=== PATIENT | female | born 1965 | race Hispanic/Latino ===

== ENCOUNTER 2018-04-22 21:03 | Outpatient (AMB) | payer MEDICAID, SELFPAY ==
[2018-04-22 22:48] VITALS: BP 133/88; PULSE 81; RESP 18; TEMP 37.2; O2SAT 98; BMI 31.6
--- NOTE | 2018-04-22 23:00 | URCARE_ITS ---
Intake Ht./Wt. Decline/Exclusions Patient Declined Height and Weight this visit: No PT Meets exclusion criteria: No Vital Signs 04/22/18 22:48 Height Method Measured Weight Measurement Method Standing Scale BMI 31.6 Temp 98.9 F Temp Source Temporal Artery Scan Pulse 81 Pulse Source Monitor Respiration 18 BP 133/88 H Blood Pressure Source Automatic Cuff Blood Pressure Location Right Upper Arm Position Sitting Pulse Oximetry (%) 98 Oxygen Delivery Method Room Air Intake Zika Travel: No Been in contact w/anyone who has been Dx w/Zika Virus: No Been in contact w/anyone sick during travel outside country: No Patient >or equal to 18 years BMI outside of range 18.5-24.9: Yes Visit Reasons: UC Flank pain Primary Care Provider: Nicolas Kolb Is patient in pain?: Yes Pain Location:: abd Walsh-Lu/Numerical: 10 Pain Scale Used: Numeric (1 - 10) Triage Triage Allergy / Med Rec Allergies tramadol Allergy (Severe, Unverified 01/13/17 13:19) UNKNOWN Band Placement: Patient Identification MONET: 3-Urgent Arrival Mode of Arrival: Private Vehicle Method of Arrival: Ambulatory Accompanied By: Self PCP or OBGYN visit in last 3 months: No Language Preferred Language: Chadian Family And Marriage Counsellor Required: No Female History Now: No : No Social History Alcohol / Drugs Hx Alcohol Use: No Hx Substance Use: No Safety Do You Feel Safe at Home: Yes Authorities Contacted: N/A Sharp Fall Scale Special Populations Patient Comatose, Paralyzed or Immobile: No Patient Under the Age of 44 Years Old: No Assessment History of falling; immediate or within 3 months: No Secondary diagnosis: No Ambulatory aid: None IV Infusion: No Gait/Transferring: Normal/bedrest/immobile Mental Status: Oriented to own ability Score Score: 0 Risk Level/Action Risk Level: Low Risk Action: Good Basic Nursing Care Fall Star Level 1 Fall Star Level 1: Yes Patient Education Topic Education Topics: Discharge Instructions and Plan of Care Teaching Recipient: Patient Readiness, Motivation to Learn: Active Methods: Verbal instruction and Hand Out Educ Materials Suggested by INFO Button/Rx Monograph Given: No Response: Verbalize Understanding Family And Marriage Counsellor Required: No Population Health PM Hx Congestive Heart Failure: No Hx Diabetes Mellitus Type 1: No Hx Diabetes Mellitus Type 2: No Hx Renal Disease: No Hx Chronic Obstructive Pulmonary Disease (COPD): No Past Medical History Reviewed and agree with Nursing documentation.: Yes Past Medical History History Provided By: Patient Cardiac Medical History Hx Congestive Heart Failure: No Endocrine Medical History Hx Diabetes Mellitus Type 1: No Hx Diabetes Mellitus Type 2: No Genitourinary Medical History Hx Renal Disease: No Respiratory Medical History Hx COPD: No HPI Flank Pain Patient who denies any GI past medical history presents today with complaints of several week history of a left upper quadrant abdominal pain that seems to have worsened over the last 3 or 4 days patient says the pain is severe whether she sits up or lies flat she has not had any vomiting but she has felt nauseous patient has not had any diarrhea or constipation but has episodically noticed blood in her stool she denies history of hemorrhoids or GI bleed she has not had any fever chills shortness of breath chest pain dizziness or vomiting. Patient states that she is attempted to take ibuprofen for the pain but it does not seem to be going away. Patient states she is also noticed that she is starting to urinate a lot though she has not had any dysuria hematuria hesitancy or urgency Review of Systems (UC) Const Constitutional: Reports system reviewed and no additional complaints, except as documented ENT Ears. Nose, Mouth, and Throat: Reports system reviewed and no additional complaints, except as documented Card Cardiovascular: Reports system reviewed and no additional complaints, except as documented Resp Respiratory: Reports system reviewed and no additional complaints, except as documented GI Gastrointestinal: Reports system reviewed and no additional complaints, except as documented Genitourinary: Reports system reviewed and no additional complaints, except as documented Exam (UC) Patient is alert and oriented x3 in no acute distress skin is normal color no diaphoresis or mucosa is pink no exudate no lesions neck supple no lymphadenopathy lungs are clear to auscultation bilaterally heart is regular rate rhythm normal S1-S2 no murmurs rubs or gallops abdomen is soft with left upper quadrant tenderness to palpation no rebound or guarding tenderness positive bowel sounds x4 organomegaly bruits masses or CVAT noted SPO2%: 98% SPO2 type: Room Air SPO2% Normal/Abnormal: Normal Office Procedures UC Level of Care Nursing/Assessment/Reassessment Patient Status: Established Patient Nursing Assessment/Reassessment: Triage Asessment, Initial Vital Signs and RN General Assessments Coordination of Care: DC Instructions Simple Established Patient Charge Established Patient Point Assignment: 40 Established Patient Point Assignment: EP Level 2 (40-75) Procedures: Pulse Ox reading: Yes UC Refer Patient to ED Yes Additional Comments:: PATIENT AND DAUGHTER BOTH VERBALIZED UNDERSTANDING PATIENT NEEDED TO GO DIRECTLY TO ER. Assessment and Plan Assessment & Plan (1) Abdominal pain: Qualifiers: Abdominal location: left upper quadrant Qualified Code(s): R10.12 - Left upper quadrant pain Plan - Salvatore Villela PA-C: Given patient's presentation and history she is sent to the emergency department for further evaluation she is currently stable nontoxic-appearing and will be going via private vehicle with her daughter Plan Details Other Orders: Orders: UC Refer Patient to ED Today Primary Care Provider: Nicolas Kolb Additional Information LUDY/TERRIE Supervising Physician: Blayne Phipps DC Evaluation Discharge Information Seen, Treated and Released by Provider: No Left Prior to Receiving Discharge Instructions: No Transfer to Outside Facility: No Vital Signs Vitals Signs N/A: Yes Pain Pain Medication / Other Intervention Provided: No Medication Medication Given this Visit: No Discharge Information Condition on Discharge: Stable Mode of Discharge: Ambulatory Discharge Transportation: Private Vehicle Instructions Family And Marriage Counsellor Required: No Discharge Instructions Given To: Patient Was Follow up Care Ordered: Yes Verbalizes Understanding of Discharge Instructions: Yes [facility] information card provided?: Yes Patient plan follow up w/PCP for [facility]: No Discharge Comment Discharge Comment: PATIENT AND DAUGHTER BOTH VERBALIZED UNDERSTANDING THAT PATIENT NEEDS TO GO DIRECTLY TO ED.
== END 2018-04-22 23:11 | disposition home or self-care (01) ==
PROVIDERS: PCP Physician Assistant; Referring Provider Physician Assistant; Visit Provider Physician Assistant